=== PATIENT | male | born 1975 | race Hispanic/Latino ===

== ENCOUNTER → 2022-05-15 | Outpatient (CLI) | payer OTHER ==
[~2022-05-15] MED LIST: IOHEXOL 350 MG/ML 100ML INFUS..BTL IV ONE
[2022-05-15 08:41] LABS: ALBUMIN 4.3 g/dL (3.5-5.0); CREATININE 1.1 mg/dL (0.5-1.5); POTASSIUM 4.1 mmol/L (3.5-5.1); TOTAL PROTEIN, SERUM 8.2 g/dL (6.0-8.3)
== END | disposition home or self-care (01) ==
LOC: CANPRECLI → RAH 07:18
PROVIDERS: ATTEND Student in an Organized Health Care Education/Training Program
DX: I70.1 Atherosclerosis of renal artery (principal); I10 Essential (primary) hypertension; Q27.1 Congenital renal artery stenosis; M47.815 Spondylosis without myelopathy or radiculopathy, thoracolumbar region
CPT/HCPCS: 74175; 80053; 36415; Q9967